=== PATIENT | female | born 1970 | race Caucasian/White ===

== ENCOUNTER → 2022-06-07 | Day surgery (SDC) | payer MEDICAID ==
[~2022-06-07] MED LIST: Lactated Ringers 1,000 ML IV SCH
== END ==
LOC: CC.SDS 10:55
PROVIDERS: ATTEND Family Medicine
DX: R15.9 Full incontinence of feces (principal); I10 Essential (primary) hypertension; E78.5 Hyperlipidemia, unspecified; R32 Unspecified urinary incontinence; F32.A Depression, unspecified; Z53.09 Procedure and treatment not carried out because of other contraindication; Z79.899 Other long term (current) drug therapy; Z87.891 Personal history of nicotine dependence
CPT/HCPCS: J7120

== ENCOUNTER 2022-09-18 17:35 | Emergency (ER) | payer MEDICAID ==
[2022-09-18] MEDS: Ketorolac 30 MG/ML SDV IM ONE (18:01)
== END 2022-09-18 19:14 | disposition home or self-care (01) ==
LOC: CC.ED 17:35
DX: S99.921A Unspecified injury of right foot, initial encounter (principal); E78.00 Pure hypercholesterolemia, unspecified; I10 Essential (primary) hypertension; Z79.899 Other long term (current) drug therapy; Z87.891 Personal history of nicotine dependence; W10.8XXA Fall (on) (from) other stairs and steps, initial encounter
CPT/HCPCS: 73610-RT; 99283